=== PATIENT | male | born 1960 | race Caucasian/White ===

== ENCOUNTER 2018-05-02 17:40 | Inpatient (IN) | payer OTHER ==
[~2018-05-02] VITALS: Ht 177.8 cm; Wt 75.0 kg
[~2018-05-02 17:40] MED LIST: FENTAnyl 50 MCG/ML VIAL ONE
--- NOTE | 2018-05-02 17:50 | ERD ---
ER Documentation Chief Complaint Chief Complaint Chest pain HPI 57-year-old male with a history of hypertension brought in by ambulance for substernal chest pain. Patient states his symptoms started 1 hour ago while he was working. He states that he felt sweaty in his chest and pressure. Ambulance was immediately called. STEMI was recognized on EKG. Aspirin and nitroglycerin were given. Upon patient arrival, he states his pain is decrea sed. ROS Unable to obtain full history due to patient's critical condition. PMhx/Soc Full history was difficult to obtain as the patient was critical and taken immediately to the Junior Technical Writer Hx Cardiac Disorders: Yes (HTN) Hx Alcohol Use: Yes Hx Substance Use: No Hx Tobacco Use: Yes Smoking Status: Current every day smoker FmHx unable to obtain Physical Exam Physical Exam Const: No acute distress, no diaphoresis Head: Atraumatic Eyes: Normal Conjunctiva ENT: Normal External Ears, Nose and Mouth. Neck: Full range of motion. No meningismus. Resp: Clear to auscultation bilaterally Cardio: Regular rate and rhythm, no murmurs. 2+ distal pulses. Abd: Soft, non tender, non distended. Normal bowel sounds Skin: No petechiae or rashes Back: No midline or flank tenderness Ext: No cyanosis, or edema Neur: Awake and alert Psych: Normal Mood and Affect Procedures/MDM EMERGENT LABS AND DIAGNOSTIC STUDIES: Lab Results above were reviewed and interpreted by me. Labs are pending at time of admission 12-lead EKG from field was interpreted by Po Pineda MD: Atrial fibrillation with RVR and PVC at 107 bpm Normal axis Normal intervals LVH Inferior ST elevations with lateral depressions Consistent with STEMI. Initial Nursing notes reviewed. Previous Medical Records requested via the Electronic Health Record. EMERGENCY DEPARTMENT COURSE / MEDICAL DECISION MAKING: Patient is presenting for chest pain and EKG consistent with a STEMI. He was hemodynamically stable upon arrival. His symptoms have improved after he was given medications in the field. The engineering test specialist, Dr. Myles, was immediately notified prior to patient arrival. Junior Technical Writer was activated prior to patient arrival. Patient was evaluated immediately and taken directly to the Junior Technical Writer by the engineering test specialist. He consented to the procedure with a sales financial analyst available at bedside. No further workup was done in the ED as the patient was emergently taken for PCI. Accepting Care Team: Current data and ongoing care discussed. Time: Time of admission Primary Provider: [FILIPE] Consulting: Dr. Myles Outstanding Data: none Departure Diagnosis: Primary Impression: ST elevation (STEMI) myocardial infarction Involved coronary artery: unspecified coronary artery Qualified Codes: I21.3 - ST elevation (STEMI) myocardial infarction of unspecified site Condition: Critical DONNA PINEDA MD May 02, 2018 17:50
[2018-05-02] MEDS ORDERED: PRASUGREL HYDROCHLORIDE 10 MG TABLET PO ONE (18:04)
[2018-05-02] MEDS ORDERED: VERAPAMIL 5 MG INJ ONE ×2 (18:05)
[2018-05-02] MEDS ORDERED: NITROGLYCERIN (IC) 100 MCG/ML INJ ONE ×2 (18:05→18:23)
[2018-05-02] MEDS ORDERED: DIGOXIN 500 MCG INJ IV ONE (18:24)
[2018-05-02] MEDS ORDERED: IODIXANOL LOCM 100 ML BTL ONE (18:53)
[2018-05-02] MEDS ORDERED: LIDOCAINE 1% (MDV) 20 ML INJ ONE (18:53)
[2018-05-02] MEDS ORDERED: IODIXANOL LOCM 50 ML BTL ONE (18:53)
[2018-05-02] MEDS ORDERED: SOD CHLORIDE 0.9% 1,000 ML IV SCH (19:05)
--- NOTE | 2018-05-02 19:18 | OPR ---
Date/Time of Note Date/Time of Note DATE: 05/02/18 TIME: 19:11 Operative Report Procedure Date: May 02, 2018 Preoperative Diagnosis INFERIOR STEMI Postoperative Diagnosis INFERIOR STEMI Operation/Procedure Performed PCI RCA Surgeon see signature line Beekeeper none Anesthesia Type: moderate sedation Estimated Blood Loss: minimal Transfusion none Specimen none Grafts/Implants none Complications none Procedure Description Computer Game Tester: Geovanny Myles MD Indication: Inferior ST elevation myocardial infarction Procure performed: #1 Emergent left heart catheterization and selective right and left coronary angiogram #2 Right femoral angiogram 3. Successful PTCA and stenting of proximal mid and distal right coronary artery using 3.5 x 16 mm Synergy, 3 x 38 mm Synergy, 2.5 x 24 mm Synergy drug- eluting stent 4. Thrombectomy of the right coronary artery using a Pronto device Findings: 1. Left main: is large and long with 30% mid to distal stenosis. 2. LAD: Moderate size and wraps around the apex. It has 40 % stenosis at proximal LAD, and 60 % stenosis at mid LAD the site of diagonal. Second diagonal is moderate size vessel with about 60-70% ostial stenosis.. 3. Left circumflex artery: is nondominant and small and gives out to one obtuse marginal. It has diffuse mid to distal stenosis 4. Ramus intermediate is a large vessel but about 90% mid stenosis at the site of a band 5. RCA: is large and dominant. it is 100% occluded proximally. After successful PCI to this lesion there was no significant residual stenosis left. 5. LV: 129/15 aortic pressure by pull back: 118/73 Procedure in detail: Written informed consent with obtained after risks benefits and alternatives di scussed with the patient in detail. risks including but not limited to risk of infection vascular complications, bleeding complications, ND stroke arrhythmia renal failure at even were discussed with the patient in detail. Patient was emergently brought into the cardiac optical laboratory mechanic and placed in supine position. Right and left groin area was prepped and draped in regular sterile fashion and then he was in anesthetized using 1% lidocaine. Right femoral artery was cannulated and using modified seldinger technique a 6 Nepali sheath was placed in the femoral artery. JL4 guiding catheter was advanced to engage the left main coronary artery angiographic view was obtained. A JR4 guiding DrRoxy was advanced to engage the right coronary artery graft view was obtained.. This time we decided to perform PCI of the right coronary artery. BMW wire was used and advanced across the lesion and placed distal to the lesion. I used a 2.5 x 12 mm balloon which was placed across the lesion and predilated the vessel. A Pronto was used multiple rounds and thrombectomy was done. More ballooning was done at the proximal mid and distal right coronary artery. Then I used a 2.5 x 24 mm Synergy drug-eluting stent which was placed across the distal right coronary artery lesion and deployed at 16 Kaylie. Then a 3 x 38 mm Synergy drug-eluting stent was placed across the mid lesion deployed at 16 kaylie. Finally a 3.5 x 16 mm Synergy drug-eluting stent was placed across the proximal lesion overlapping with the mid stent. This was deployed at 16 kaylie. The stent balloon was advanced and overlapping area was postdilated up to 16 kaylie. Finally a 3.5 x 12 mm noncompliant balloon was used and postdilated the stent and up to 20 Kaylie. Final angiographic view was obtained which showed BRIGETTE-3 flow no evidence of dissection and no significant residual stenosis at the site of the stent. Then a pigtail was advanced to engage the left ventricle hemodynamics as recorded by pullback aortic pressure was measured. Femoral angiogram was performed. Perclose was advanced to complete it could not be deployed. Sheath was placed back in Patient tolerated the procedure well with no complication. Patient was transferred to ICU in stable condition. contrast used: 180 cc Visipaque Conclusions: Successful PTCA thrombectomy /stenting of the right coronary artery from 100% occlusion to no significant residual stenosis using a 3 DESright coronary stent. Recommendations: Aggressive medical therapy. aspirin indefinitely dual antiplatlet therapy with asa/ effient ICU care overnight. GEOVANNY MYLES MD [facility] GEOVANNY MYLES MD May 02, 2018 19:18
[2018-05-02] MEDS ORDERED: ACETAMINOPHEN 325 MG TAB PO PRN (19:30)
[2018-05-02] MEDS ORDERED: BIVALIRUDIN 250 MG in SOD CHLORIDE 0.9% 500 ML IV SCH (19:30)
[2018-05-02] MEDS ORDERED: OXYCODONE/ACETAMINOPHEN (5/325) TAB PO PRN ×2 (19:30)
[2018-05-02] MEDS ORDERED: morphine 2 MG INJ IV PRN (19:30)
--- NOTE | 2018-05-02 19:30 | CONS ---
Assessment/Plan Assessment/Plan Hospital Course (Demo Recall) 1. Acute inferior ST elevation myocardial infarction 2. Status post emergent PCI of the right coronary artery 3. Multivessel coronary artery disease including significant ramus intermediate disease 4. Hypertension 5. Rule out dyslipidemia 6. Atrial fibrillation rapid ventricular response: Currently has converted back to sinus rhythm 7. Obesity and likely obstructive sleep apnea 8. Smoker Recommendations: Aspirin and Effient has been initiated. Patient has been strongly advised to stop smoking Continue with the Angiomax drip postprocedure for 3 hours and then remove the sheath 2 hours post. Echocardiogram has been ordered for tomorrow. Statin has been initiated. Continue with close ICU care. Importance of compliance with the medication especially aspirin and Effient discussed with the patient and multiple family was at the bedside. Prescription has been given to the family to filling the prescription today. More than 40 minutes of critical care time was for management treatment is critically ill patient excluding any procedures. Thank you for his referral will continue following with you. GEOVANNY SANDS MD [facility] Consultation Date/Type/Reason Admit Date/Time Date of Consultation: May 02, 2018 Type of Consult emergent interventional Cardiology Reason for Consultation stemi Requesting Provider: DONNA HEATH MD Date/Time of Note DATE: 05/02/18 TIME: 19:29 Hx of Present Illness Emergent interventional cardiology consultation note Chief complaint: Diaphoresis, chest pain Reason for consult: ST elevation ND History of present illness: Thank you for this referral. History was obtained from the patient discussion with his family including daughter and discussion with the ER physician multiple staff. This is a pleasant 57-year-old gentleman with history of [place] obesity hypertension smoker who was brought into emergency above complaint. Patient apparently was at work he started sweating and having chest pain anteriorly. Paramedics were called EKG was done which showed inferior ST elevation myocardial infarction atrial fibrillation. . Code STEMI was activated. Patient was immediately seen by myself in the emergency room as soon as he got to the emergency room. Patient was taken emergently for emergent coronary angiography. Angiography showed 100% occlusion of the right coronary artery. This lesion was successfully stented using 3 drug-eluting stent and thrombectomy was done. Initially patient was in atrial fibrillation rapid ventricular response. However he has converted back to sinus rhythm after successful PCI and currently in sinus rhythm. His chest pain at this point has completely resolved. Remains in ICU with close monitoring. She is in place Allergies: No known drug allergies Medications does not remember. He takes a blood pressure medication but not regularly though Family history: Denies any history of early coronary artery disease Social history: Non-smoker is with lives with family Past medical history: Hypertension, dyslipidemia probably, obesity Review of system: Patient denies all others except for above-mentioned Past Medical History Allergies: Coded Allergies: No Known Allergy (Unverified , 05/02/18) Social History Smoking Status: Current every day smoker Exam/Review of Systems Vital Signs Vitals Vital Signs Date Temp Pulse Resp B/P (MAP) Pulse Ox O2 O2 Flow FiO2 Time Delivery Rate 05/02/18 97.3 90 16 135/60 100 Room Air 17:47 (85) Exam Exam General: Obese gentleman no acute distress HEENT: NC/AT. pupils are equal. round. NECK: NO JVD. no stridor. CV: RRR. systolic murmur; no gallop or rubs. PULM: no wheezing or rhonchi. GI: SOFT, NT, ND, no rebound or guarding Extremity: trace B/L LE edema. no clubbing. neuro: awake and alert, OX3. Psych: calm and pleasant rectal: deferred : normal Vascular right femoral sheath is in place. EKG in the emergency room showed atrial fibrillation with rapid ventricular response. Inferior ST elevation myocardial infarction Labs Result Diagram: 05/02/18 1745 05/02/18 1745 Results 24hrs Laboratory Tests Test 05/02/18 17:45 White Blood Count 12.6 H Red Blood Count 4.93 Hemoglobin 15.3 Hematocrit 46.0 Mean Corpuscular Volume 93.3 Mean Corpuscular Hemoglobin 31.0 Mean Corpuscular Hemoglobin Concent 33.3 Red Cell Distribution Width 12.3 Platelet Count 241 Mean Platelet Volume 10.5 H Immature Granulocytes % 1.000 H Neutrophils % 74.2 Lymphocytes % 11.4 L Monocytes % 10.5 Eosinophils % 2.4 Basophils % 0.5 Nucleated Red Blood Cells % 0.0 Immature Granulocytes # 0.120 H Neutrophils # 9.4 H Lymphocytes # 1.4 Monocytes # 1.3 H Eosinophils # 0.3 Basophils # 0.1 Nucleated Red Blood Cells # 0.0 Prothrombin Time 12.1 Prothrombin Time Ratio 0.9 INR International Normalized Ratio 0.89 Activated Partial Thromboplast Time 28.6 Sodium Level 141 Potassium Level 4.1 Chloride Level 105 Carbon Dioxide Level 25 Anion Gap 11 Blood Urea Nitrogen 12 Creatinine 1.43 H Est Glomerular Filtrat Rate mL/min 51 L Glucose Level 156 Calcium Level 9.6 Troponin I 0.046 GEOVANNY SANDS MD May 02, 2018 19:30
[2018-05-02 20:00] VITALS: BP 168/89; PULSE 90; PULSE 92; RESP 18
[2018-05-02 21:00] VITALS: BP 153/92; PULSE 96; RESP 18
[2018-05-02] MEDS ORDERED: METOPROLOL 25 MG TAB PO SCH (21:00)
[2018-05-02] MEDS: FAMOTIDINE 20 MG TAB PO SCH (21:35)
[2018-05-02] MEDS: DOCUSATE SODIUM 100 MG CAP PO SCH (21:35)
[2018-05-02] MEDS: ATORVASTATIN 80 MG TAB PO SCH (21:35)
[2018-05-02 22:00] VITALS: BP 162/105; PULSE 100; RESP 19; Ht 177.8 cm; Wt 75.0 kg
[2018-05-02 23:00] VITALS: BP 150/102; PULSE 88; RESP 14
--- NOTE | 2018-05-02 23:53 | HP ---
Date/Time of Note Date/Time of Note DATE: 05/02/18 TIME: 23:53 Assessment/Plan VTE Prophylaxis Pharmacological prophylaxis: heparin Lines/Catheters IV [facility]ter [facility]from [facility] Saline Lock Urinary Cath still in place: No Assessment/Plan Assessment/Plan 1. STEMI: Status post thrombectomy and stenting of the RCA -Continue current medication per cardiology -Check A1c, fasting lipid and TSH in a.m. -Follow-up 2D echo and cardiology recommendations 2. Presumed GUSTAVO -NS IVF for now -We will make a decision about the renal ultrasound and nephrology consult in a.m. 3. Left elbow swelling, likely secondary to gout -Family to bring medication that he takes at home for gout. In the meantime will treat with 4. Hypertension: Adjust antihypertensives as needed 5. Leukocytosis: Likely reactive Result Diagram: 05/02/18 1745 05/02/18 1745 Results 24hrs Laboratory Tests Test 05/02/18 17:45 05/02/18 22:46 White Blood Count 12.6 H Red Blood Count 4.93 Hemoglobin 15.3 Hematocrit 46.0 Mean Corpuscular Volume 93.3 Mean Corpuscular Hemoglobin 31.0 Mean Corpuscular Hemoglobin Concent 33.3 Red Cell Distribution Width 12.3 Platelet Count 241 Mean Platelet Volume 10.5 H Immature Granulocytes % 1.000 H Neutrophils % 74.2 Lymphocytes % 11.4 L Monocytes % 10.5 Eosinophils % 2.4 Basophils % 0.5 Nucleated Red Blood Cells % 0.0 Immature Granulocytes # 0.120 H Neutrophils # 9.4 H Lymphocytes # 1.4 Monocytes # 1.3 H Eosinophils # 0.3 Basophils # 0.1 Nucleated Red Blood Cells # 0.0 Prothrombin Time 12.1 Prothrombin Time Ratio 0.9 INR International Normalized Ratio 0.89 Activated Partial Thromboplast Time 28.6 Sodium Level 141 Potassium Level 4.1 Chloride Level 105 Carbon Dioxide Level 25 Anion Gap 11 Blood Urea Nitrogen 12 Creatinine 1.43 H Est Glomerular Filtrat Rate mL/min 51 L Glucose Level 156 Calcium Level 9.6 Troponin I 0.046 107.000 *H Hemoglobin A1c 6.5 H Creatine Kinase 2866 H Creatine Kinase Index 6.2 Creatinine Kinase MB (Mass) 178.00 H HPI/ROS Admit Date/Time Admit Date/Time Hx of Present Illness This is a 57-year-old male with a history of hypertension and gout who presented to ER complaining of chest pain. He was diagnosed with STEMI. Patient was taken to the Web Machine Tender emergently and underwent cardiac cath. He is status post thrombectomy of the RCA and successful PTCA and stenting of proximal mid and distal right coronary artery. Currently admitted to ICU in stable condition. Currently he is chest pain-free, denying shortness of breath and overall feels well and looks comfortable. He does have swelling on his right elbow, which he said started over a week ago. He said he takes gout medication for it. Swelling was twice the size of what it is now several days ago. It is only minimally swollen and there is no erythema. He also reported having had swelling on his left great toe. PMH/Family/Social Past Medical History Medical History: other (See HPI) Medications Current Medications Miscellaneous Information (* Miscellaneous Pharmacy Order) Hold all Metformin ... ONCE XX ; Start 05/02/18 at 19:30; Stop 05/04/18 at 19:29 Aspirin (Halfprin) 81 mg DAILY PO ; Start 05/03/18 at 09:00 Prasugrel (Effient) 10 mg DAILY PO ; Start 05/03/18 at 09:00 Acetaminophen (Tylenol Tab) 650 mg Q4H PRN PO PAIN; Start 05/02/18 at 19:30 Oxycodone/ Acetaminophen (Percocet (5/ 325)) 1 tab Q4H PRN PO PAIN; Start 05/02/18 at 19:30 Oxycodone/ Acetaminophen (Percocet (5/ 325)) 2 tab Q4H PRN PO PAIN; Start 05/02/18 at 19:30 Morphine Sulfate (morphine) 1 mg Q1H PRN IV PAIN; Start 05/02/18 at 19:30 Docusate Sodium (Colace) 100 mg BID PO Last administered on 05/02/18at 21:35; Admin Dose 100 MG; Start 05/02/18 at 21:00 Famotidine (Pepcid) 20 mg Q12 PO Last administered on 05/02/18at 21:35; Admin Dose 20 MG; Start 05/02/18 at 21:00 Atorvastatin Calcium (Lipitor) 80 mg DAILY@21 PO Last administered on 05/02/18at 21:35; Admin Dose 80 MG; Start 05/02/18 at 21:00 Sodium Chloride 1,000 ml @ 100 mls/hr Q10H IV Last administered on 05/02/18at 19:05; Admin Dose 100 MLS/HR; Start 05/02/18 at 19:05; Stop 05/03/18 at 05:04 Carvedilol (Coreg) 6.25 mg BID PO Last administered on 05/02/18at 21:36; Admin Dose 6.25 MG; Start 05/02/18 at 21:00 Clonidine (Catapres) 0.1 mg Q4H PRN NGT SBP > 170; Start 05/02/18 at 20:30 Coded Allergies: No Known Allergy (Unverified , 05/02/18) Past Surgical History Past Surgical Hx: other (See HPI) Family History Significant Family History: no pertinent family hx Social History Alcohol Use: occasionally Smoking Status: Current every day smoker Drug Use: none Exam/Review of Systems Vital Signs Vitals Vital Signs Date Temp Pulse Resp B/P (MAP) Pulse Ox O2 O2 Flow FiO2 Time Delivery Rate 05/02/18 92 20:00 05/02/18 97.3 16 135/60 100 Room Air 17:47 (85) Exam Constitutional: alert, oriented, well developed Head: normocephalic, atraumatic Eyes: EOMI, PERRL Respiratory: clear to auscultation, normal air movement Cardiovascular: regular rate and rhythm, nl pulses Gastrointestinal: soft, non-tender Extremities: normal pulses, other (Left elbow swelling) SIM CHÁVEZ MD May 02, 2018 23:53
[2018-05-02] MEDS ORDERED: ATROPINE 1 MG/10 ML SYRINGE ONE (23:57)
[2018-05-03] VITALS (26 sets, daily range): BP systolic 120–166; BP diastolic 62–124; PULSE 77–96; RESP 9–20
--- NOTE | 2018-05-03 07:14 | CONS ---
Consult Date/Type/Reason Admit Date/Time May 02, 2018 at 19:11 Initial Consult Date 05/02/18 Type of Consultation: interventional card Requesting Provider: DONNA HEATH MD Date/Time of Note DATE: 05/03/18 TIME: 07:09 Subjective Interventional cardiology follow-up progress note/critical care note Subjective: Case discussed with the staff. Discussed with the family. D/W PHYSICIANS Patient with no chest pain or pressure now. Has minimal groin discomfort. No bleeding is reported. Patient has been able to walk this morning with no chest pain or pressure. He denies any PND orthopnea to me. Telemetry was reviewed patient has remained in sinus rhythm Objective: General: Obese gentleman in no acute distress HEENT: NC/AT. pupils are equal. round. NECK: NO JVD. no stridor. CV: RRR. systolic murmur; no gallop or rubs. PULM: no wheezing or rhonchi. GI: SOFT, NT, ND, no rebound or guarding Extremity: trace B/L LE edema. no clubbing. neuro: awake and alert, OX3. Psych: calm and pleasant rectal: deferred : normal Vascular: Right femoral no bleeding no hematoma noted. No bruit. EKG postprocedure shows: Normal sinus rhythm. T wave inversion in inferolateral leads. Echocardiogram done 05/03/2018 was personally reviewed which shows: Normal left ventricular cavity size. Mild concentric left ventricular hypertrophy. Ejection fraction is visually estimated at 60 %. Tissue Doppler/Mitral Doppler indices are consistent with impaired relaxation (Stage I diastolic dysfunction). These segments of the LV are hypokinetic inferior base segment. Mild mitral leaflet calcification. Mild mitral annular calcification. Trace mitral regurgitation. No significant aortic stenosis or insufficiency. Aortic cusps appear mildly calcified. Normal appearance of the tricuspid valve. Estimated peak PA systolic pressure 42 mmHg. There is mild tricuspid regurgitation. Objective Vitals Vital Signs Date Temp Pulse Resp B/P (MAP) Pulse Ox O2 O2 Flow FiO2 Time Delivery Rate 05/03/18 83 12 160/105 100 Room Air 06:00 (123) 05/03/18 2.0 05:00 05/03/18 98.2 04:00 Intake and Output 05/02/18 05/02/18 05/03/18 1515:00 23:00 07:00 IntakeIntake Total 580 ml 600 ml OutputOutput Total 0 ml 1050 ml BalanceBalance 580 ml -450 ml Results/Medications Result Diagram: 05/03/18 0444 05/03/18 0444 Results 24 hrs Laboratory Tests Test 05/02/18 17:45 05/02/18 22:46 05/03/18 04:44 White Blood Count 12.6 H 11.2 H Red Blood Count 4.93 4.52 L Hemoglobin 15.3 14.0 Hematocrit 46.0 41.3 L Mean Corpuscular Volume 93.3 91.4 Mean Corpuscular Hemoglobin 31.0 31.0 Mean Corpuscular Hemoglobin Concent 33.3 33.9 Red Cell Distribution Width 12.3 12.6 Platelet Count 241 217 Mean Platelet Volume 10.5 H 10.7 H Immature Granulocytes % 1.000 H 0.400 Neutrophils % 74.2 74.7 Lymphocytes % 11.4 L 14.2 L Monocytes % 10.5 9.3 Eosinophils % 2.4 1.0 Basophils % 0.5 0.4 Nucleated Red Blood Cells % 0.0 0.0 Immature Granulocytes # 0.120 H 0.040 H Neutrophils # 9.4 H 8.4 H Lymphocytes # 1.4 1.6 Monocytes # 1.3 H 1.0 H Eosinophils # 0.3 0.1 Basophils # 0.1 0.0 Nucleated Red Blood Cells # 0.0 0.0 Prothrombin Time 12.1 13.2 Prothrombin Time Ratio 0.9 1.0 INR International Normalized Ratio 0.89 0.99 Activated Partial Thromboplast Time 28.6 Sodium Level 141 140 Potassium Level 4.1 3.9 Chloride Level 105 106 Carbon Dioxide Level 25 27 Anion Gap 11 7 Blood Urea Nitrogen 12 10 Creatinine 1.43 H 0.91 Est Glomerular Filtrat Rate mL/min 51 L > 60 Glucose Level 156 129 Calcium Level 9.6 9.1 Troponin I 0.046 107.000 *H 114.000 *H Hemoglobin A1c 6.5 H 6.4 H Creatine Kinase 2866 H 2743 H Creatine Kinase Index 6.2 6.3 Creatinine Kinase MB (Mass) 178.00 H 174.00 H Magnesium Level 2.0 Total Bilirubin 0.3 Direct Bilirubin 0.00 Indirect Bilirubin 0.3 Aspartate Amino Transf (AST/SGOT) 336 H Alanine Aminotransferase (ALT/SGPT) 75 H Alkaline Phosphatase 72 B-Type Natriuretic Peptide 329 H Total Protein 6.8 Albumin 3.6 Globulin 3.20 Albumin/Globulin Ratio 1.12 Triglycerides Level 347 H Cholesterol Level 164 LDL Cholesterol, Calculated 70 HDL Cholesterol 25 L Cholesterol/HDL Ratio 6.5 Thyroid Stimulating Hormone (TSH) 0.872 Free Thyroxine 0.79 Medications Current Medications Miscellaneous Information (* Miscellaneous Pharmacy Order) Hold all Metformin ... ONCE XX ; Start 05/02/18 at 19:30; Stop 05/04/18 at 19:29 Aspirin (Halfprin) 81 mg DAILY PO ; Start 05/03/18 at 09:00 Prasugrel (Effient) 10 mg DAILY PO ; Start 05/03/18 at 09:00 Acetaminophen (Tylenol Tab) 650 mg Q4H PRN PO PAIN; Start 05/02/18 at 19:30 Oxycodone/ Acetaminophen (Percocet (5/ 325)) 1 tab Q4H PRN PO PAIN; Start 05/02/18 at 19:30 Oxycodone/ Acetaminophen (Percocet (5/ 325)) 2 tab Q4H PRN PO PAIN; Start 05/02/18 at 19:30 Morphine Sulfate (morphine) 1 mg Q1H PRN IV PAIN; Start 05/02/18 at 19:30 Docusate Sodium (Colace) 100 mg BID PO Last administered on 05/02/18at 21:35; Admin Dose 100 MG; Start 05/02/18 at 21:00 Famotidine (Pepcid) 20 mg Q12 PO Last administered on 05/02/18at 21:35; Admin Dose 20 MG; Start 05/02/18 at 21:00 Atorvastatin Calcium (Lipitor) 80 mg DAILY@21 PO Last administered on 05/02/18at 21:35; Admin Dose 80 MG; Start 05/02/18 at 21:00 Carvedilol (Coreg) 6.25 mg BID PO Last administered on 05/02/18at 21:36; Admin Dose 6.25 MG; Start 05/02/18 at 21:00 Clonidine (Catapres) 0.1 mg Q4H PRN NGT SBP > 170; Start 05/02/18 at 20:30 Assessment/Plan Hospital Course (Demo Recall) 1. Acute inferior ST elevation myocardial infarction 2. Status post emergent PCI of the right coronary artery 3. Multivessel coronary artery disease including significant ramus intermediate disease 4. Hypertension 5. Rule out dyslipidemia 6. Atrial fibrillation rapid ventricular response: Currently has converted back to sinus rhythm 7. Obesity and likely obstructive sleep apnea 8. Smoker 8. DM? Recommendations: CONT Aspirin and Effient inc coreg 12.5 bid Patient has been strongly advised to stop smoking Off the Angiomax drip high dose statin PCI RI as inpatient or outpt at a later time Importance of compliance with the medication especially aspirin and Effient discussed with the patient and multiple family was at the bedside. Prescription has been given to the family to filling the prescription today. Plan for staged PCI of the ramus intermediate tomorrow morning if patient stays compliant with the medication the family is able to filling the prescriptions. Risks benefits alternative procedure discussed with the patient and family including daughter at the bedside in detail. Risks including but not limited to risk of infection vascular complication bleeding complication [place] stroke arrhythmia renal failure etc. discussed with them. Consent has been obtained. More than 34 minutes of critical care time was for management treatment is critically ill patient excluding any procedures. Thank you for his referral will continue following with you. GEOVANNY SANDS MD [facility] GEOVANNY SANDS MD May 03, 2018 07:14
[2018-05-03] MEDS: DOCUSATE SODIUM 100 MG CAP PO SCH ×2 (08:32→20:50)
[2018-05-03] MEDS: FAMOTIDINE 20 MG TAB PO SCH ×2 (08:33→20:51)
[2018-05-03] MEDS: PRASUGREL HYDROCHLORIDE 10 MG TABLET PO SCH (08:33)
[2018-05-03] MEDS: ASPIRIN (EC) 81 MG TAB PO SCH (08:33)
--- NOTE | 2018-05-03 09:37 | PN ---
Date/Time of Note Date/Time of Note DATE: 05/03/18 TIME: 09:32 Assessment/Plan VTE Prophylaxis Risk score (from Ns)>0 risk: 4 SCD applied (from Ns): Yes Pharmacological prophylaxis: other Lines/Catheters IV Catheter Type (from Nrs): Saline Lock Urinary Cath still in place: No Assessment/Plan Hospital Course S: Patient seen by cardiology team this morning. Had stent placement yesterday. No acute events overnight. O: VS - see below PE: General: Obese gentleman, lying in bed, no acute distress HEENT: NC/AT. pupils are equal. round. NECK: Supple CV: RRR. systolic murmur; no gallop or rubs. PULM: no wheezing or rhonchi. GI: SOFT, NT, ND, no rebound or guarding Extremity: trace B/L LE edema. no clubbing. neuro: No focal deficits Vascular: Right femoral no bleeding no hematoma noted. No bruit. Assessment/Plan: 57-year-old male who presents with: 1. STEMI: Status post thrombectomy and stenting of the RCA -Continue current medications per cardiology -Follow-up further cardiology recommendations 2. Presumed GUSTAVO -resolved now after given IV fluids -Monitor for now 3. Left elbow swelling, likely secondary to gout -Family to bring medication that he takes at home for gout. 4. Hypertension: Diastolic pressure still high -Monitor, adjust antihypertensives as needed 5. Leukocytosis: Likely reactive -Monitor for now Critical care time spent on patient care today equals 45 minutes. Result Diagram: 05/03/18 0444 05/03/18 0444 Results 24hrs Laboratory Tests Test 05/02/18 17:45 05/02/18 22:46 05/03/18 04:44 White Blood Count 12.6 H 11.2 H Red Blood Count 4.93 4.52 L Hemoglobin 15.3 14.0 Hematocrit 46.0 41.3 L Mean Corpuscular Volume 93.3 91.4 Mean Corpuscular Hemoglobin 31.0 31.0 Mean Corpuscular Hemoglobin Concent 33.3 33.9 Red Cell Distribution Width 12.3 12.6 Platelet Count 241 217 Mean Platelet Volume 10.5 H 10.7 H Immature Granulocytes % 1.000 H 0.400 Neutrophils % 74.2 74.7 Lymphocytes % 11.4 L 14.2 L Monocytes % 10.5 9.3 Eosinophils % 2.4 1.0 Basophils % 0.5 0.4 Nucleated Red Blood Cells % 0.0 0.0 Immature Granulocytes # 0.120 H 0.040 H Neutrophils # 9.4 H 8.4 H Lymphocytes # 1.4 1.6 Monocytes # 1.3 H 1.0 H Eosinophils # 0.3 0.1 Basophils # 0.1 0.0 Nucleated Red Blood Cells # 0.0 0.0 Prothrombin Time 12.1 13.2 Prothrombin Time Ratio 0.9 1.0 INR International Normalized Ratio 0.89 0.99 Activated Partial Thromboplast Time 28.6 Sodium Level 141 140 Potassium Level 4.1 3.9 Chloride Level 105 106 Carbon Dioxide Level 25 27 Anion Gap 11 7 Blood Urea Nitrogen 12 10 Creatinine 1.43 H 0.91 Est Glomerular Filtrat Rate mL/min 51 L > 60 Glucose Level 156 129 Calcium Level 9.6 9.1 Troponin I 0.046 107.000 *H 114.000 *H Hemoglobin A1c 6.5 H 6.4 H Creatine Kinase 2866 H 2743 H Creatine Kinase Index 6.2 6.3 Creatinine Kinase MB (Mass) 178.00 H 174.00 H Magnesium Level 2.0 Total Bilirubin 0.3 Direct Bilirubin 0.00 Indirect Bilirubin 0.3 Aspartate Amino Transf (AST/SGOT) 336 H Alanine Aminotransferase (ALT/SGPT) 75 H Alkaline Phosphatase 72 B-Type Natriuretic Peptide 329 H Total Protein 6.8 Albumin 3.6 Globulin 3.20 Albumin/Globulin Ratio 1.12 Triglycerides Level 347 H Cholesterol Level 164 LDL Cholesterol, Calculated 70 HDL Cholesterol 25 L Cholesterol/HDL Ratio 6.5 Thyroid Stimulating Hormone (TSH) 0.872 Free Thyroxine 0.79 Exam/Review of Systems Exam Vitals Vital Signs Date Temp Pulse Resp B/P (MAP) Pulse Ox O2 O2 Flow FiO2 Time Delivery Rate 05/03/18 96 18 141/107 98 Room Air 09:00 (118) 05/03/18 98.5 08:00 05/03/18 2.0 05:00 Intake and Output 05/02/18 05/02/18 05/03/18 1515:00 23:00 07:00 IntakeIntake Total 580 ml 600 ml OutputOutput Total 0 ml 1050 ml BalanceBalance 580 ml -450 ml Results Results 24hrs Laboratory Tests Test 05/02/18 17:45 05/02/18 22:46 05/03/18 04:44 White Blood Count 12.6 H 11.2 H Red Blood Count 4.93 4.52 L Hemoglobin 15.3 14.0 Hematocrit 46.0 41.3 L Mean Corpuscular Volume 93.3 91.4 Mean Corpuscular Hemoglobin 31.0 31.0 Mean Corpuscular Hemoglobin Concent 33.3 33.9 Red Cell Distribution Width 12.3 12.6 Platelet Count 241 217 Mean Platelet Volume 10.5 H 10.7 H Immature Granulocytes % 1.000 H 0.400 Neutrophils % 74.2 74.7 Lymphocytes % 11.4 L 14.2 L Monocytes % 10.5 9.3 Eosinophils % 2.4 1.0 Basophils % 0.5 0.4 Nucleated Red Blood Cells % 0.0 0.0 Immature Granulocytes # 0.120 H 0.040 H Neutrophils # 9.4 H 8.4 H Lymphocytes # 1.4 1.6 Monocytes # 1.3 H 1.0 H Eosinophils # 0.3 0.1 Basophils # 0.1 0.0 Nucleated Red Blood Cells # 0.0 0.0 Prothrombin Time 12.1 13.2 Prothrombin Time Ratio 0.9 1.0 INR International Normalized Ratio 0.89 0.99 Activated Partial Thromboplast Time 28.6 Sodium Level 141 140 Potassium Level 4.1 3.9 Chloride Level 105 106 Carbon Dioxide Level 25 27 Anion Gap 11 7 Blood Urea Nitrogen 12 10 Creatinine 1.43 H 0.91 Est Glomerular Filtrat Rate mL/min 51 L > 60 Glucose Level 156 129 Calcium Level 9.6 9.1 Troponin I 0.046 107.000 *H 114.000 *H Hemoglobin A1c 6.5 H 6.4 H Creatine Kinase 2866 H 2743 H Creatine Kinase Index 6.2 6.3 Creatinine Kinase MB (Mass) 178.00 H 174.00 H Magnesium Level 2.0 Total Bilirubin 0.3 Direct Bilirubin 0.00 Indirect Bilirubin 0.3 Aspartate Amino Transf (AST/SGOT) 336 H Alanine Aminotransferase (ALT/SGPT) 75 H Alkaline Phosphatase 72 B-Type Natriuretic Peptide 329 H Total Protein 6.8 Albumin 3.6 Globulin 3.20 Albumin/Globulin Ratio 1.12 Triglycerides Level 347 H Cholesterol Level 164 LDL Cholesterol, Calculated 70 HDL Cholesterol 25 L Cholesterol/HDL Ratio 6.5 Thyroid Stimulating Hormone (TSH) 0.872 Free Thyroxine 0.79 Medications Medication Current Medications Miscellaneous Information (* Miscellaneous Pharmacy Order) Hold all Metformin ... ONCE XX ; Start 05/02/18 at 19:30; Stop 05/04/18 at 19:29 Aspirin (Halfprin) 81 mg DAILY PO Last administered on 05/03/18 08:33; Admin Dose 81 MG; Start 05/03/18 at 09:00 Prasugrel (Effient) 10 mg DAILY PO Last administered on 05/03/18 08:33; Admin Dose 10 MG; Start 05/03/18 at 09:00 Acetaminophen (Tylenol Tab) 650 mg Q4H PRN PO PAIN; Start 05/02/18 at 19:30 Oxycodone/ Acetaminophen (Percocet (5/ 325)) 1 tab Q4H PRN PO PAIN; Start 05/02/18 at 19:30 Oxycodone/ Acetaminophen (Percocet (5/ 325)) 2 tab Q4H PRN PO PAIN; Start 05/02/18 at 19:30 Morphine Sulfate (morphine) 1 mg Q1H PRN IV PAIN; Start 05/02/18 at 19:30 Docusate Sodium (Colace) 100 mg BID PO Last administered on 05/03/18 08:32; Admin Dose 100 MG; Start 05/02/18 at 21:00 Famotidine (Pepcid) 20 mg Q12 PO Last administered on 05/03/18 08:33; Admin Dose 20 MG; Start 05/02/18 at 21:00 Atorvastatin Calcium (Lipitor) 80 mg DAILY@21 PO Last administered on 05/02/18at 21:35; Admin Dose 80 MG; Start 05/02/18 at 21:00 Clonidine (Catapres) 0.1 mg Q4H PRN NGT SBP > 170; Start 05/02/18 at 20:30 Carvedilol (Coreg) 12.5 mg BID PO Last administered on 05/03/18 08:33; Admin Dose 12.5 MG; Start 05/03/18 at 09:00 GOYO JACQUES May 03, 2018 09:37
--- NOTE | 2018-05-03 10:16 | RADRPT ---
Echocardiogram Report Patient Name: Indiana PÉREZtient ID: [id number] : 1960 (57y 7m)Study Date: 05/03/2018 8:10:56 AM Gender: MAccession #: [id number] Tech: Devon Callahan [facility] Location: [address] Ref.Physician: GEOVANNY MYLES Height(Cm): BSA: Weight(Kg): Quality: AdequateAccount #: Procedures: Echocardiographic Report: Transthoracic echocardiogram with complete 2D, M-Mode, and doppler examination. Indications: STEMI. Measurements: 2D/M Mode Doppler Measurement Value Normal Range Measurement Value Normal Range LVIDd 2D 4.1 [ 4.2 - 5.8 ] cm AV Peak Mitchel 1.4 [ 100.0 - 170.0 ] cm/sec LVIDs 2D 2.8 [ 2.5 - 4.0 ] cm AV Peak PG 8.0 [ 2.0 - 9.0 ] mmHg LVPWd 2D 1.3 [ 0.6 - 1.0 ] cm LVOT Peak Mitchel 1.0 [ 70.0 - 110.0 ] cm/sec IVSd 2D 1.3 [ 0.6 - 1.0 ] cm LVOT Peak PG 4.0 [ 2.0 - 6.0 ] mmHg AoR Diam 2D 2.9 [ 2.6 - 3.4 ] cm MV E Peak Mitchel 0.7 [ 60.0 - 130.0 ] cm/sec EDV 2D 72.5 [ 62.0 - 150.0 ] ml MV A Peak Mitchel 0.9 [ 100.0 - 120.0 ] cm/sec ESV 2D 28.5 [ 21.0 - 61.0 ] ml MV E/A 0.8 [ 0.8 - 1.5 ] ratio EF 2D 60.7 [ 52.0 - 72.0 ] percent MV Decel Time 222 [ 104 - 258 ] msec LA Dimen 2D 3.1 [ 3.0 - 4.0 ] cm Lat E` Mitchel 0.1 [ 10.0 - 15.0 ] cm/sec Lateral E/E` 7.9 [ 1.0 - 2.0 ] ratio Med E` Mitchel 0.1 cm/sec MV E/A 0.8 [ 0.8 - 1.5 ] ratio TR Peak Mitchel 2.8 [ 100.0 - 280.0 ] cm/sec TR Peak PG 32.0 mmHg RVSP 42.0 [ 10.0 - 36.0 ] mmHg Findings: Left Ventricle: Normal left ventricular cavity size. Mild concentric left ventricular hypertrophy. Ejection fraction is visually estimated at 60 %. Tissue Doppler/Mitral Doppler indices are consistent with impaired relaxation (Stage I diastolic dysfunction). These segments of the LV are hypokinetic inferior base segment. Right Ventricle: Normal right ventricular size. Normal right ventricular systolic function. Left Atrium: The left atrium is normal in size. Right Atrium: The right atrium is normal in size. Mitral Valve: Mild mitral leaflet calcification. Mild mitral annular calcification. Trace mitral regurgitation. Aortic Valve: No significant aortic stenosis or insufficiency. Aortic cusps appear mildly calcified. Tricuspid Valve: Normal appearance of the tricuspid valve. Estimated peak PA systolic pressure 42 mmHg. There is mild tricuspid regurgitation. Pericardium: Normal pericardium with no significant pericardial effusion. Aorta: Normal aortic root. IVC: Normal size with poor respiratory collapse consistent with elevated right atrial pressure. Conclusions: Normal left ventricular cavity size. Mild concentric left ventricular hypertrophy. Ejection fraction is visually estimated at 60 %. Tissue Doppler/Mitral Doppler indices are consistent with impaired relaxation (Stage I diastolic dysfunction). These segments of the LV are hypokinetic inferior base segment. Mild mitral leaflet calcification. Mild mitral annular calcification. Trace mitral regurgitation. No significant aortic stenosis or insufficiency. Aortic cusps appear mildly calcified. Normal appearance of the tricuspid valve. Estimated peak PA systolic pressure 42 mmHg. There is mild tricuspid regurgitation. Electronically Signed By: Geovanny Myles 2018-05-03 10:15:35 PST
[2018-05-03] MEDS: ATORVASTATIN 80 MG TAB PO SCH (20:51)
[2018-05-04] VITALS (23 sets, daily range): BP systolic 112–154; BP diastolic 70–142; PULSE 70–90; RESP 11–25
[2018-05-04] MEDS ORDERED: LIDOCAINE 1% (MDV) 20 ML INJ ONE (06:43)
[2018-05-04] MEDS ORDERED: NITROGLYCERIN (IC) 100 MCG/ML INJ ONE (06:43)
[2018-05-04] MEDS ORDERED: MIDAZOLAM 1 MG/ML 2 ML INJ ONE (06:43)
[2018-05-04] MEDS ORDERED: IODIXANOL LOCM 100 ML BTL ONE (06:43)
[2018-05-04] MEDS ORDERED: HEPARIN 1000 UNITS/ML 10 ML INJ ONE ×2 (06:43→07:44)
[2018-05-04] MEDS ORDERED: VERAPAMIL 5 MG INJ ONE ×3 (06:45→07:03)
[2018-05-04] MEDS ORDERED: FENTAnyl 50 MCG/ML VIAL ONE (06:45)
--- NOTE | 2018-05-04 07:27 | CONS ---
Consult Date/Type/Reason Admit Date/Time May 02, 2018 at 19:11 Initial Consult Date 05/02/18 Type of Consultation: interventional card Requesting Provider: DONNA HEATH MD Date/Time of Note DATE: 05/04/18 TIME: 07:25 Subjective Interventional cardiology follow-up progress note/critical care note Subjective: Case discussed with the staff. family has obtained the effient D/W PHYSICIANS Patient with no chest pain or pressure now. Has minimal groin discomfort. No bleeding is reported. Patient has been able to walk this morning with no chest pain or pressure. He denies any PND orthopnea to me. Telemetry was reviewed patient has remained in sinus rhythm Objective: General: Obese gentleman in no acute distress HEENT: NC/AT. pupils are equal. round. NECK: NO JVD. no stridor. CV: RRR. systolic murmur; no gallop or rubs. PULM: no wheezing or rhonchi. GI: SOFT, NT, ND, no rebound or guarding Extremity: trace B/L LE edema. no clubbing. neuro: awake and alert, OX3. Psych: calm and pleasant rectal: deferred : normal Vascular: Right femoral no bleeding no hematoma noted. No bruit. EKG postprocedure shows: Normal sinus rhythm. T wave inversion in inferolateral leads. Echocardiogram done 05/03/2018 was personally reviewed which shows: Normal left ventricular cavity size. Mild concentric left ventricular hypertrophy. Ejection fraction is visually estimated at 60 %. Tissue Doppler/Mitral Doppler indices are consistent with impaired relaxation (Stage I diastolic dysfunction). These segments of the LV are hypokinetic inferior base segment. Mild mitral leaflet calcification. Mild mitral annular calcification. Trace mitral regurgitation. No significant aortic stenosis or insufficiency. Aortic cusps appear mildly calcified. Normal appearance of the tricuspid valve. Estimated peak PA systolic pressure 42 mmHg. There is mild tricuspid regurgitation. Objective Vitals Vital Signs Date Temp Pulse Resp B/P (MAP) Pulse Ox O2 O2 Flow FiO2 Time Delivery Rate 05/04/18 90 131/87 95 Room Air 05:00 (102) 05/04/18 17 04:00 05/04/18 98.3 00:00 05/03/18 2.0 20:00 Intake and Output 05/03/18 05/03/18 05/04/18 1414:59 22:59 06:59 IntakeIntake Total 150 ml 100 ml OutputOutput Total 0 ml 0 ml 375 ml BalanceBalance 150 ml 100 ml -375 ml Results/Medications Result Diagram: 05/04/1843405/04/18435 Results 24 hrs Laboratory Tests Test 05/04/18 04:35 05/04/18 04:36 White Blood Count 9.3 Red Blood Count 4.48 L Hemoglobin 13.8 L Hematocrit 40.8 L Mean Corpuscular Volume 91.1 Mean Corpuscular Hemoglobin 30.8 Mean Corpuscular Hemoglobin Concent 33.8 Red Cell Distribution Width 12.3 Platelet Count 198 Mean Platelet Volume 10.4 Immature Granulocytes % 0.500 H Neutrophils % 62.8 Lymphocytes % 21.9 Monocytes % 11.3 H Eosinophils % 3.1 Basophils % 0.4 Nucleated Red Blood Cells % 0.0 Immature Granulocytes # 0.050 H Neutrophils # 5.9 Lymphocytes # 2.0 Monocytes # 1.1 H Eosinophils # 0.3 Basophils # 0.0 Nucleated Red Blood Cells # 0.0 Prothrombin Time 13.3 Prothrombin Time Ratio 1.0 INR International Normalized Ratio 1.00 Sodium Level 141 Potassium Level 4.2 Chloride Level 106 Carbon Dioxide Level 27 Anion Gap 8 Blood Urea Nitrogen 12 Creatinine 1.08 Est Glomerular Filtrat Rate mL/min > 60 Glucose Level 124 Calcium Level 9.3 Magnesium Level 2.1 Total Bilirubin 0.4 Direct Bilirubin 0.00 Indirect Bilirubin 0.4 Aspartate Amino Transf (AST/SGOT) 116 #H Alanine Aminotransferase (ALT/SGPT) 50 Alkaline Phosphatase 73 Creatine Kinase 647 #H Creatine Kinase Index 2.9 Creatinine Kinase MB (Mass) 18.80 H Troponin I 23.500 *H Total Protein 6.9 Albumin 3.7 Globulin 3.20 Albumin/Globulin Ratio 1.15 Medications Current Medications Miscellaneous Information (* Miscellaneous Pharmacy Order) Hold all Metformin ... ONCE XX ; Start 05/02/18 at 19:30; Stop 05/04/18 at 19:29 Aspirin (Halfprin) 81 mg DAILY PO Last administered on 05/03/18at 08:33; Admin Dose 81 MG; Start 05/03/18 at 09:00 Prasugrel (Effient) 10 mg DAILY PO Last administered on 05/03/18at 08:33; Admin Dose 10 MG; Start 05/03/18 at 09:00 Acetaminophen (Tylenol Tab) 650 mg Q4H PRN PO PAIN; Start 05/02/18 at 19:30 Oxycodone/ Acetaminophen (Percocet (5/ 325)) 1 tab Q4H PRN PO PAIN; Start 05/02/18 at 19:30 Oxycodone/ Acetaminophen (Percocet (5/ 325)) 2 tab Q4H PRN PO PAIN; Start 05/02/18 at 19:30 Morphine Sulfate (morphine) 1 mg Q1H PRN IV PAIN; Start 05/02/18 at 19:30 Docusate Sodium (Colace) 100 mg BID PO Last administered on 05/03/18at 20:50; Admin Dose 100 MG; Start 05/02/18 at 21:00 Famotidine (Pepcid) 20 mg Q12 PO Last administered on 05/03/18at 20:51; Admin Dose 20 MG; Start 05/02/18 at 21:00 Atorvastatin Calcium (Lipitor) 80 mg DAILY@21 PO Last administered on 05/03/18at 20:51; Admin Dose 80 MG; Start 05/02/18 at 21:00 Clonidine (Catapres) 0.1 mg Q4H PRN NGT SBP > 170; Start 05/02/18 at 20:30 Carvedilol (Coreg) 12.5 mg BID PO Last administered on 05/03/18at 20:51; Admin Dose 12.5 MG; Start 05/03/18 at 09:00 Assessment/Plan Hospital Course (Demo Recall) 1. Acute inferior ST elevation myocardial infarction 2. Status post emergent PCI of the right coronary artery 3. Multivessel coronary artery disease including significant ramus intermediate disease 4. Hypertension 5. Rule out dyslipidemia 6. Atrial fibrillation rapid ventricular response: Currently has converted back to sinus rhythm 7. Obesity and likely obstructive sleep apnea 8. Smoker 8. DM? Recommendations: CONT Aspirin and Effient cont coreg 12.5 bid Patient has been strongly advised to stop smoking Off the Angiomax drip high dose statin PCI RI today Importance of compliance with the medication especially aspirin and Effient d iscussed with the patient and multiple family was at the bedside. Prescription has been given to the family to filling the prescription today. Plan for staged PCI of the ramus intermediate tomorrow morning if patient stays compliant with the medication the family is able to filling the prescriptions. Risks benefits alternative procedure discussed with the patient and family including daughter at the bedside in detail. Risks including but not limited to risk of infection vascular complication bleeding complication [place] stroke arrhythmia renal failure etc. discussed with them. Consent has been obtained. ok to transfer to tele in afternoon Thank you for his referral will continue following with you. GEOVANNY SANDS MD [facility] GEOVANNY SANDS MD May 04, 2018 07:27
[2018-05-04] MEDS ORDERED: IOHEXOL 350MG/ML 50 ML BTL ONE (07:53)
[2018-05-04] MEDS ORDERED: SOD CHLORIDE 0.9% 1,000 ML IV SCH (08:20)
--- NOTE | 2018-05-04 08:20 | OPR ---
Date/Time of Note Date/Time of Note DATE: 05/04/18 TIME: 08:14 Operative Report Procedure Date: May 04, 2018 Preoperative Diagnosis CAD . [place] Postoperative Diagnosis same Operation/Procedure Performed PCI RI Surgeon see signature line Manufacturing Industrial Engineer bentley Anesthesia Type: moderate sedation Estimated Blood Loss: minimal Transfusion none Specimen NONE Grafts/Implants none Complications none Procedure Description Scow Derrick Operator: Geovanny Myles MD Indication: 57-year-old gentleman with history of coronary artery disease status post STEMI and PCI of right coronary artery he was also found to have significant ramus intermediate disease. He was scheduled to come in for staged PCI of his ramus intermediate evaluation of right coronary artery Procure performed: #1 selective right and left coronary angiogram using left radial approach. #2 ultrasound guided placement of radial arterial sheath placement 3. Successful PTCA and stenting of ramus intermediate using a 2.5 x 12 mm Synergy drug-eluting stent 4. Moderate sedation for more than 45 minutes Findings: 1. Left main: is large and long with 30% mid to distal stenosis. 2. LAD: Moderate size and wraps around the apex. It has 40 % stenosis at proximal LAD, and 60 % stenosis at mid LAD the site of diagonal. Second diagonal is moderate size vessel with about 60-70% ostial stenosis.. 3. Left circumflex artery: is nondominant and small and gives out to one obtuse marginal. It has diffuse mid to distal stenosis 4. Ramus intermediate is a large vessel with about 90% mid stenosis at the site of a band ----> 0% PCI 5. RCA: is large and dominant. Previous stents are widely patent Procedure in detail: Written informed consent with obtained after risks benefits and alternatives discussed with the patient in detail. risks including but not limited to risk of infection vascular complications, bleeding complications, [place] stroke arrhythmia renal failure at even were discussed with the patient in detail. Patient was brought into the cardiac crown and bridge dental lab technician and placed in supine position. Radial area was prepped and draped in regular sterile fashion and then he was in anesthetized using 1% lidocaine. Under marketing assistant manager of ultrasound, radial artery was cannulated and using modified seldinger technique a 6 American sheath was placed in the radial artery. JR4 catheter was advanced and engaged into the right coronary artery and angiographic view was obtained. At this time we decided to perform PCI of the ramus intermediate artery. A Voda 3 guiding head was advanced to engage the left main coronary artery. Angiographic view was obtained. PT wire was used and advanced across the lesion and placed distal to the lesion. I used a 2.5 x 8 mm balloon which was placed a cross the lesion and predilated the vessel. Then I used a 2.5 x 12 mm Synergy drug-eluting stent which was placed across the lesion and deployed at 16 Jarek. Final angiographic view was obtained which showed BRIGETTE-3 flow no evidence of dissection and no significant residual stenosis at the site of the stent. Patient tolerated the procedure well with no complication. Patient is to be transferred to ICU in stable condition. contrast used: 80 cc Visipaque Conclusions: Successful PTCA stenting of the ramus intermediate artery from 90% stenosis to no significant residual stenosis using a 2.5 x 12 mm Synergy drug- eluting stent. Recommendations: Aggressive medical therapy. aspirin indefinitely dual antiplatlet therapy with aspirin and Effient GEOVANNY MYLES MD [facility] GEOVANNY MYLES MD May 04, 2018 08:20
[2018-05-04] MEDS: PRASUGREL HYDROCHLORIDE 10 MG TABLET PO SCH (08:42)
[2018-05-04] MEDS: FAMOTIDINE 20 MG TAB PO SCH ×2 (08:42→21:13)
[2018-05-04] MEDS: ASPIRIN (EC) 81 MG TAB PO SCH (08:42)
[2018-05-04] MEDS: DOCUSATE SODIUM 100 MG CAP PO SCH ×2 (08:43→21:12)
--- NOTE | 2018-05-04 09:36 | PN ---
Date/Time of Note Date/Time of Note DATE: 05/04/18 TIME: 09:34 Assessment/Plan VTE Prophylaxis Risk score (from Ns)>0 risk: 7 SCD applied (from Ns): Yes Pharmacological prophylaxis: other Lines/Catheters IV Catheter Type [facility]from [facility] Saline Lock Urinary Cath still in place: No Assessment/Plan Hospital Course S: Patient had second cardiac stent placement early this morning, now back in the intensive care unit, otherwise no acute events overnight. O: VS - see below PE: General: Obese gentleman, lying in bed, no acute distress HEENT: NC/AT. pupils are equal. round. NECK: Supple CV: RRR. systolic murmur; no gallop or rubs. PULM: no wheezing or rhonchi. GI: SOFT, NT, ND, no rebound or guarding Extremity: trace B/L LE edema. no clubbing. neuro: No focal deficits Vascular: Right femoral no bleeding no hematoma noted. No bruit. Assessment/Plan: 57-year-old male who presents with: 1. STEMI: Status post thrombectomy and stenting of the RCA 2 days ago, and now status post PCI to the RI this morning -Continue current medications per cardiology -Follow-up further cardiology recommendations 2. Presumed GUSTAVO -resolved now after given IV fluids -Monitor for now 3. Left elbow swelling, likely secondary to gout -Monitor, family to bring medication that he takes at home for gout. 4. Hypertension: Diastolic pressure still high -Monitor, adjust antihypertensives as needed 5. Leukocytosis: Likely reactive -Monitor for now Critical care time spent on patient care today equals 40 minutes. Result Diagram: 05/04/18 0435 05/04/18 0436 Results 24hrs Laboratory Tests Test 05/04/18 04:35 05/04/18 04:36 White Blood Count 9.3 Red Blood Count 4.48 L Hemoglobin 13.8 L Hematocrit 40.8 L Mean Corpuscular Volume 91.1 Mean Corpuscular Hemoglobin 30.8 Mean Corpuscular Hemoglobin Concent 33.8 Red Cell Distribution Width 12.3 Platelet Count 198 Mean Platelet Volume 10.4 Immature Granulocytes % 0.500 H Neutrophils % 62.8 Lymphocytes % 21.9 Monocytes % 11.3 H Eosinophils % 3.1 Basophils % 0.4 Nucleated Red Blood Cells % 0.0 Immature Granulocytes # 0.050 H Neutrophils # 5.9 Lymphocytes # 2.0 Monocytes # 1.1 H Eosinophils # 0.3 Basophils # 0.0 Nucleated Red Blood Cells # 0.0 Prothrombin Time 13.3 Prothrombin Time Ratio 1.0 INR International Normalized Ratio 1.00 Sodium Level 141 Potassium Level 4.2 Chloride Level 106 Carbon Dioxide Level 27 Anion Gap 8 Blood Urea Nitrogen 12 Creatinine 1.08 Est Glomerular Filtrat Rate mL/min > 60 Glucose Level 124 Calcium Level 9.3 Magnesium Level 2.1 Total Bilirubin 0.4 Direct Bilirubin 0.00 Indirect Bilirubin 0.4 Aspartate Amino Transf (AST/SGOT) 116 #H Alanine Aminotransferase (ALT/SGPT) 50 Alkaline Phosphatase 73 Creatine Kinase 647 #H Creatine Kinase Index 2.9 Creatinine Kinase MB (Mass) 18.80 H Troponin I 23.500 *H Total Protein 6.9 Albumin 3.7 Globulin 3.20 Albumin/Globulin Ratio 1.15 Exam/Review of Systems Exam Vitals Vital Signs Date Temp Pulse Resp B/P (MAP) Pulse Ox O2 O2 Flow FiO2 Time Delivery Rate 05/04/18 98.1 15 129/89 99 Nasal 2.0 08:36 (102) Cannula 05/04/18 90 05:00 Intake and Output 05/03/18 05/03/18 05/04/18 1515:00 23:00 07:00 IntakeIntake Total 150 ml 100 ml OutputOutput Total 0 ml 0 ml 375 ml BalanceBalance 150 ml 100 ml -375 ml Results Results 24hrs Laboratory Tests Test 05/04/18 04:35 05/04/18 04:36 White Blood Count 9.3 Red Blood Count 4.48 L Hemoglobin 13.8 L Hematocrit 40.8 L Mean Corpuscular Volume 91.1 Mean Corpuscular Hemoglobin 30.8 Mean Corpuscular Hemoglobin Concent 33.8 Red Cell Distribution Width 12.3 Platelet Count 198 Mean Platelet Volume 10.4 Immature Granulocytes % 0.500 H Neutrophils % 62.8 Lymphocytes % 21.9 Monocytes % 11.3 H Eosinophils % 3.1 Basophils % 0.4 Nucleated Red Blood Cells % 0.0 Immature Granulocytes # 0.050 H Neutrophils # 5.9 Lymphocytes # 2.0 Monocytes # 1.1 H Eosinophils # 0.3 Basophils # 0.0 Nucleated Red Blood Cells # 0.0 Prothrombin Time 13.3 Prothrombin Time Ratio 1.0 INR International Normalized Ratio 1.00 Sodium Level 141 Potassium Level 4.2 Chloride Level 106 Carbon Dioxide Level 27 Anion Gap 8 Blood Urea Nitrogen 12 Creatinine 1.08 Est Glomerular Filtrat Rate mL/min > 60 Glucose Level 124 Calcium Level 9.3 Magnesium Level 2.1 Total Bilirubin 0.4 Direct Bilirubin 0.00 Indirect Bilirubin 0.4 Aspartate Amino Transf (AST/SGOT) 116 #H Alanine Aminotransferase (ALT/SGPT) 50 Alkaline Phosphatase 73 Creatine Kinase 647 #H Creatine Kinase Index 2.9 Creatinine Kinase MB (Mass) 18.80 H Troponin I 23.500 *H Total Protein 6.9 Albumin 3.7 Globulin 3.20 Albumin/Globulin Ratio 1.15 Medications Medication Current Medications Miscellaneous Information (* Miscellaneous Pharmacy Order) Hold all Metformin ... ONCE XX ; Start 05/02/18 at 19:30; Stop 05/04/18 at 19:29 Aspirin (Halfprin) 81 mg DAILY PO Last administered on 05/04/18at 08:42; Admin Dose 81 MG; Start 05/03/18 at 09:00 Prasugrel (Effient) 10 mg DAILY PO Last administered on 05/04/18at 08:42; Admin Dose 10 MG; Start 05/03/18 at 09:00 Acetaminophen (Tylenol Tab) 650 mg Q4H PRN PO PAIN; Start 05/02/18 at 19:30 Oxycodone/ Acetaminophen (Percocet (5/ 325)) 1 tab Q4H PRN PO PAIN; Start 05/02/18 at 19:30 Oxycodone/ Acetaminophen (Percocet (5/ 325)) 2 tab Q4H PRN PO PAIN; Start 05/02/18 at 19:30 Morphine Sulfate (morphine) 1 mg Q1H PRN IV PAIN; Start 05/02/18 at 19:30 Docusate Sodium (Colace) 100 mg BID PO Last administered on 05/04/18at 08:43; Admin Dose 100 MG; Start 05/02/18 at 21:00 Famotidine (Pepcid) 20 mg Q12 PO Last administered on 05/04/18at 08:42; Admin Dose 20 MG; Start 05/02/18 at 21:00 Atorvastatin Calcium (Lipitor) 80 mg DAILY@21 PO Last administered on 05/03/18at 20:51; Admin Dose 80 MG; Start 05/02/18 at 21:00 Clonidine (Catapres) 0.1 mg Q4H PRN NGT SBP > 170; Start 05/02/18 at 20:30 Carvedilol (Coreg) 12.5 mg BID PO Last administered on 05/04/18at 08:42; Admin Dose 12.5 MG; Start 05/03/18 at 09:00 Sodium Chloride 1,000 ml @ 75 mls/hr [id number] IV Last administered on 05/04/18at 08:44; Admin Dose 75 MLS/HR; Start 05/04/18 at 08:20; Stop 05/04/18 at 21:39 GOYO JACQUES May 04, 2018 09:36
[2018-05-04] MEDS: ATORVASTATIN 80 MG TAB PO SCH (21:12)
[2018-05-05] VITALS (8 sets, daily range): BP systolic 126–139; BP diastolic 79–87; PULSE 67–85; RESP 18–19
--- NOTE | 2018-05-05 07:54 | CONS ---
Consult Date/Type/Reason Admit Date/Time May 02, 2018 at 19:11 Initial Consult Date 05/02/18 Type of Consultation: interventional card Requesting Provider: DONNA HEATH MD Date/Time of Note DATE: 05/05/18 TIME: 07:46 Subjective Interventional cardiology follow-up progress note/critical care note Subjective: Case discussed with the staff. family has obtained the effient Patient with no chest pain or pressure now. Has NO groin discomfort. No bleeding is reported. NO hand pain or numbness Patient has been able to walk this morning with no chest pain or pressure. He denies any PND orthopnea to me. Telemetry was reviewed patient has remained in sinus rhythm pt feels better and wants to go home Objective: General: Obese gentleman in no acute distress HEENT: NC/AT. pupils are equal. round. NECK: NO JVD. no stridor. CV: RRR. systolic murmur; no gallop or rubs. PULM: no wheezing or rhonchi. GI: SOFT, NT, ND, no rebound or guarding Extremity: trace B/L LE edema. no clubbing. neuro: awake and alert, OX3. Psych: calm and pleasant rectal: deferred : normal Vascular: Right femoral no bleeding no hematoma noted. No bruit. Left radial pulses intact EKG postprocedure shows: Normal sinus rhythm. T wave inversion in inferolateral leads. Echocardiogram done 05/03/2018 was personally reviewed which shows: Normal left ventricular cavity size. Mild concentric left ventricular hypertrophy. Ejection fraction is visually estimated at 60 %. Tissue Doppler/Mitral Doppler indices are consistent with impaired relaxation (Stage I diastolic dysfunction). These segments of the LV are hypokinetic inferior base segment. Mild mitral leaflet calcification. Mild mitral annular calcification. Trace mitral regurgitation. No significant aortic stenosis or insufficiency. Aortic cusps appear mildly calcified. Normal appearance of the tricuspid valve. Estimated peak PA systolic pressure 42 mmHg. There is mild tricuspid regurgitation. Objective Vitals Vital Signs Date Temp Pulse Resp B/P (MAP) Pulse Ox O2 O2 Flow FiO2 Time Delivery Rate 05/05/18 98.6 67 19 139/81 94 07:20 (100) 05/05/18 Room Air 04:03 05/04/18 2.0 21:32 Intake and Output 05/04/18 05/04/18 05/05/18 1515:00 23:00 07:00 IntakeIntake Total 895 ml 300 ml 480 ml OutputOutput Total 600 ml 0 ml BalanceBalance 295 ml 300 ml 480 ml Results/Medications Result Diagram: 05/05/18 0534 05/05/18 0534 Results 24 hrs Laboratory Tests Test 05/05/18 05:34 White Blood Count 8.9 Red Blood Count 4.48 L Hemoglobin 13.9 L Hematocrit 40.8 L Mean Corpuscular Volume 91.1 Mean Corpuscular Hemoglobin 31.0 Mean Corpuscular Hemoglobin Concent 34.1 Red Cell Distribution Width 12.2 Platelet Count 215 Mean Platelet Volume 10.7 H Immature Granulocytes % 0.500 H Neutrophils % 62.8 Lymphocytes % 20.9 Monocytes % 10.6 Eosinophils % 4.6 Basophils % 0.6 Nucleated Red Blood Cells % 0.0 Immature Granulocytes # 0.040 H Neutrophils # 5.6 Lymphocytes # 1.9 Monocytes # 0.9 Eosinophils # 0.4 Basophils # 0.1 Nucleated Red Blood Cells # 0.0 Sodium Level 142 Potassium Level 3.9 Chloride Level 107 Carbon Dioxide Level 26 Anion Gap 9 Blood Urea Nitrogen 17 Creatinine 1.11 Est Glomerular Filtrat Rate mL/min > 60 Glucose Level 111 Calcium Level 9.3 Total Bilirubin 0.4 Direct Bilirubin 0.00 Indirect Bilirubin 0.4 Aspartate Amino Transf (AST/SGOT) 62 H Alanine Aminotransferase (ALT/SGPT) 36 Alkaline Phosphatase 78 Total Protein 6.7 Albumin 3.6 Globulin 3.10 Albumin/Globulin Ratio 1.16 Medications Current Medications Aspirin (Halfprin) 81 mg DAILY PO Last administered on 05/04/18at 08:42; Admin Dose 81 MG; Start 05/03/18 at 09:00 Prasugrel (Effient) 10 mg DAILY PO Last administered on 05/04/18at 08:42; Admin Dose 10 MG; Start 05/03/18 at 09:00 Acetaminophen (Tylenol Tab) 650 mg Q4H PRN PO PAIN; Start 05/02/18 at 19:30 Oxycodone/ Acetaminophen (Percocet (5/ 325)) 1 tab Q4H PRN PO PAIN; Start 05/02/18 at 19:30 Oxycodone/ Acetaminophen (Percocet (5/ 325)) 2 tab Q4H PRN PO PAIN; Start 05/02/18 at 19:30 Morphine Sulfate (morphine) 1 mg Q1H PRN IV PAIN; Start 05/02/18 at 19:30 Docusate Sodium (Colace) 100 mg BID PO Last administered on 05/04/18at 21:12; Admin Dose 100 MG; Start 05/02/18 at 21:00 Famotidine (Pepcid) 20 mg Q12 PO Last administered on 05/04/18at 21:13; Admin Dose 20 MG; Start 05/02/18 at 21:00 Atorvastatin Calcium (Lipitor) 80 mg DAILY@21 PO Last administered on 05/04/18 21:12; Admin Dose 80 MG; Start 05/02/18 at 21:00 Clonidine (Catapres) 0.1 mg Q4H PRN NGT SBP > 170; Start 05/02/18 at 20:30 Carvedilol (Coreg) 12.5 mg BID PO Last administered on 05/04/18 21:13; Admin Dose 12.5 MG; Start 05/03/18 at 09:00 Assessment/Plan Hospital Course (Demo Recall) 1. Acute inferior ST elevation myocardial infarction 2. Status post emergent PCI of the right coronary artery 3. Multivessel coronary artery disease including significant ramus intermediate disease 4. Hypertension 5. Rule out dyslipidemia 6. Atrial fibrillation rapid ventricular response: Currently has converted back to sinus rhythm 7. Obesity and likely obstructive sleep apnea 8. Smoker 8. Pre DM Recommendations: CONT Aspirin and Effient cont coreg 12.5 bid Patient has been strongly advised to stop smoking high dose statin ok for dc on current meds from cardiac stand point Patient has been given my information to contact my office to schedule a follow- up appointment in about 1-2 weeks Thank you for his referral will continue following with you. GEOVANNY SANDS MD [facility] GEOVANNY SANDS MD May 05, 2018 07:54
[2018-05-05] MEDS: ASPIRIN (EC) 81 MG TAB PO SCH (08:36)
[2018-05-05] MEDS: PRASUGREL HYDROCHLORIDE 10 MG TABLET PO SCH (08:36)
[2018-05-05] MEDS: DOCUSATE SODIUM 100 MG CAP PO SCH (08:36)
[2018-05-05] MEDS: FAMOTIDINE 20 MG TAB PO SCH (08:36)
--- NOTE | 2018-05-05 11:48 | PDOCDIS ---
Discharge Instructions CONDITION [id number] Patient Condition: [id number] Stable HOME CARE INSTRUCTIONS: [id number] Diet Instructions: [id number] Low Fat /Cholesterol ACTIVITY: [id number] Activity Restrictions: [id number] Slowly Increase Activity Rest between Activity Avoid heavy lifting FOLLOW UP/APPOINTMENTS Follow-up Plan Please take your medications as prescribed, see your doctor in the clinic in the next 1 week. GOYO JACQUES May 05, 2018 11:48
[2018-05-05] MEDS ORDERED: PRAS10TA6 PO (11:50)
[2018-05-05] MEDS ORDERED: ASPI-1044 PO (11:50)
[2018-05-05] MEDS ORDERED: CARV12.579 PO (11:50)
[2018-05-05] MEDS ORDERED: FAMO20TA18 PO (11:50)
[2018-05-05] MEDS ORDERED: ATOR-2 PO (11:50)
--- NOTE | 2018-05-05 11:55 | DS ---
Date/Time of Note Date/Time of Note DATE: 05/05/18 TIME: 11:51 Discharge Summary Admission/Discharge Info Admit Date/Time May 02, 2018 at 19:11 Discharge Date/Time Discharge Diagnosis 1. STEMI: Status post thrombectomy and stenting of the RCA, and status post PCI to the RI 2. Presumed GUSTAVO -resolved now after given IV fluids 3. Left elbow swelling, likely secondary to gout 4. Hypertension 5. Leukocytosis: Likely reactive-resolved now 6. Smoking history: Counseled on cessation 7. High triglycerides Patient Condition: Stable Procedures A. 2D echo: Conclusions: Normal left ventricular cavity size. Mild concentric left ventricular hypertrophy. Ejection fraction is visually estimated at 60 %. Tissue Doppler/Mitral Doppler indices are consistent with impaired relaxation (Stage I diastolic dysfunction). These segments of the LV are hypokinetic inferior base segment. Mild mitral leaflet calcification. Mild mitral annular calcification. Trace mitral regurgitation. No significant aortic stenosis or insufficiency. Aortic cusps appear mildly calcified. Normal appearance of the tricuspid valve. Estimated peak PA systolic pressure 42 mmHg. There is mild tricuspid regurgitation. B. Date/Time of Note Date/Time of Note DATE: 05/02/18 TIME: 19:11 Operative Report Procedure Date: May 02, 2018 Preoperative Diagnosis INFERIOR STEMI Postoperative Diagnosis INFERIOR STEMI Operation/Procedure Performed PCI RCA C. Date/Time of Note Date/Time of Note DATE: 05/04/18 TIME: 08:14 Operative Report Procedure Date: May 04, 2018 Preoperative Diagnosis CAD . [place] Postoperative Diagnosis same Operation/Procedure Performed PCI RI Hx of Present Illness 57-year-old male with a history of hypertension and gout who presented to ER complaining of chest pain. He was diagnosed with STEMI. Patient was taken to the Forming Process Worker emergently and underwent cardiac cath. He is status post thrombectomy of the RCA and successful PTCA and stenting of proximal mid and distal right coronary artery. Currently admitted to ICU in stable condition. Currently he is chest pain-free, denying shortness of breath and overall feels well and looks comfortable. He does have swelling on his right elbow, which he said started over a week ago. He said he takes gout medication for it. Swelling was twice the size of what it is now several days ago. It is only minimally swollen and there is no erythema. He also reported having had swelling on his left great toe. Hospital Course Patient was admitted, seen by cardiology team. He underwent cardiac stent placement x2 secondary to the ST elevation AR. This was performed under 2 separate left heart catheterization procedures. Patient tolerated the procedure well. He was placed on aspirin, high-dose statin, Effient medication. He was counseled on smoking cessation. Over the course of his hospital stay chest pain symptoms improved, he was able to ambulate, tolerated p.o. diet. Vital signs are stable on the day of discharge. After getting clearance from the internet sales consultant teams will be discharged home today improved condition. See below for full list of discharge medications. Home Meds Active Scripts Famotidine* (Famotidine*) 20 Mg Tablet, 20 MG PO DAILY, #30 TAB 2 Refills Prov:GRISELDAGOYO S. 05/05/18 Aspirin Delayed Release (Aspirin Delayed Release) 81 Mg Tablet.dr, 81 MG PO DAILY, #30 8 Refills Prov:GEORGIEGOYO S. 05/05/18 Atorvastatin* (Atorvastatin*) 80 Mg Tablet, 80 MG PO DAILY@21, #30 TAB 4 Refills Prov:GEORGIEGOYO S. 05/05/18 Carvedilol* (Carvedilol*) 12.5 Mg Tablet, 12.5 MG PO BID, #60 TAB 4 Refills Prov:GEORGIEGOYO S. 05/05/18 Prasugrel Hydrochloride* (Effient*) 10 Mg Tablet, 10 MG PO DAILY, #30 TAB 8 Refills Prov:ADAIR JACQUESP S. 05/05/18 Follow-up Plan Please take your medications as prescribed, see your doctor in the clinic in the next 1 week. Primary Care Provider Not On Staff Doctor Time spent on discharge: > 30 minutes Pending Labs Laboratory Tests Test 05/05/18 05:34 White Blood Count 8.9 10^3/ul (4.8-10.8) Red Blood Count 4.48 10^6/ul (4.70-6.10) Hemoglobin 13.9 g/dl (14.0-18.0) Hematocrit 40.8 % (42.0-52.0) Mean Corpuscular Volume 91.1 fl (82.0-101.0) Mean Corpuscular Hemoglobin 31.0 pg (29.0-33.0) Mean Corpuscular Hemoglobin Concent 34.1 g/dl (32.0-37.0) Red Cell Distribution Width 12.2 % (11.5-14.5) Platelet Count 215 10^3/UL (140-415) Mean Platelet Volume 10.7 fl (7.4-10.4) Immature Granulocytes % 0.500 % (0.001-0.429) Neutrophils % 62.8 % (39.0-77.0) Lymphocytes % 20.9 % (15.0-51.0) Monocytes % 10.6 % (0.0-11.0) Eosinophils % 4.6 % (0.0-7.0) Basophils % 0.6 % (0.0-2.0) Nucleated Red Blood Cells % 0.0 /100WBC (0.0-0.0) Immature Granulocytes # 0.040 10^3/ul (0.0-0.031) Neutrophils # 5.6 10^3/ul (1.6-7.5) Lymphocytes # 1.9 10^3/ul (0.8-2.9) Monocytes # 0.9 10^3/ul (0.3-0.9) Eosinophils # 0.4 10^3/ul (0.0-0.5) Basophils # 0.1 10^3/ul (0.0-0.1) Nucleated Red Blood Cells # 0.0 10^3/ul (0.0-0.0) Sodium Level 142 mmol/L (135-144) Potassium Level 3.9 mmol/L (3.5-5.1) Chloride Level 107 mmol/L (97-110) Carbon Dioxide Level 26 mmol/L (21-31) Anion Gap 9 (5-13) Blood Urea Nitrogen 17 mg/dl (7-20) Creatinine 1.11 mg/dl (0.61-1.24) Est Glomerular Filtrat Rate mL/min > 60 mL/min (>60) Glucose Level 111 mg/dl (70-220) Calcium Level 9.3 mg/dl (8.4-10.2) Total Bilirubin 0.4 mg/dl (0.2-1.3) Direct Bilirubin 0.00 mg/dl (0.00-0.20) Indirect Bilirubin 0.4 mg/dl (0-1.1) Aspartate Amino Transf (AST/SGOT) 62 IU/L (15-46) Alanine Aminotransferase (ALT/SGPT) 36 IU/L (13-69) Alkaline Phosphatase 78 IU/L (42-121) Total Protein 6.7 g/dl (6.1-8.1) Albumin 3.6 g/dl (3.3-4.9) Globulin 3.10 g/dl (1.3-3.2) Albumin/Globulin Ratio 1.16 GOYO JACQUES May 05, 2018 11:55
--- NOTE | 2018-05-06 13:35 | RADRPT ---
Vent Rate: 80 bpm RR Interval: 0 msec ME Interval: 132 msec QRS Duration: 80 msec QT Interval: 364 msec QTC Interval: 419 msec P-R-T [place]: 52 - 38 - -69 degrees Sinus rhythm with premature supraventricular complexes T wave abnormality, consider inferior ischemia Abnormal ECG Electronically Signed By: Clayton Ochoa
--- NOTE | 2018-05-06 13:36 | RADRPT ---
Vent Rate: 76 bpm RR Interval: 0 msec MT Interval: 132 msec QRS Duration: 74 msec QT Interval: 376 msec QTC Interval: 423 msec P-R-T [place]: 49 - 9 - -61 degrees Normal sinus rhythm T wave abnormality, consider inferolateral ischemia Abnormal ECG Electronically Signed By: Clayton Ochoa
== END 2018-05-05 13:05 | disposition home or self-care (01) | DRG 246 ==
LOC: E/R 17:40 → CCL 19:10 → SDS 19:10 → ICU 19:11 → CCL 20:44 → ICU 20:44 → CCL 20:48 → 6WM 05-04 20:25
PROVIDERS: ADMIT Internal Medicine Interventional Cardiology; ATTEND Hospitalist
PROC: 4A023N7 Measurement of Cardiac Sampling and Pressure, Left Heart, Percutaneous Approach (ICD-10-PCS; 2018-05-02)
PROC: B211YZZ Fluoroscopy of Multiple Coronary Arteries using Other Contrast (ICD-10-PCS; 2018-05-02)
PROC: 027036Z Dilation of Coronary Artery, One Artery with Three Drug-eluting Intraluminal Devices, Percutaneous Approach (ICD-10-PCS; principal; 2018-05-02 18:00)
PROC: 02C03ZZ Extirpation of Matter from Coronary Artery, One Artery, Percutaneous Approach (ICD-10-PCS; 2018-05-02 18:00)
PROC: 027034Z Dilation of Coronary Artery, One Artery with Drug-eluting Intraluminal Device, Percutaneous Approach (ICD-10-PCS; 2018-05-04)
PROC: B211YZZ Fluoroscopy of Multiple Coronary Arteries using Other Contrast (ICD-10-PCS; 2018-05-04)
DX: I21.19 ST elevation (STEMI) myocardial infarction involving other coronary artery of inferior wall (principal); N17.9 Acute kidney failure, unspecified; I10 Essential (primary) hypertension; Z68.23 Body mass index [BMI] 23.0-23.9, adult; E66.9 Obesity, unspecified; I25.10 Atherosclerotic heart disease of native coronary artery without angina pectoris; I48.91 Unspecified atrial fibrillation; M10.9 Gout, unspecified; E78.1 Pure hyperglyceridemia; F17.200 Nicotine dependence, unspecified, uncomplicated
CPT/HCPCS: 71045; 80048; 80053; 80061; 82550; 82553; 83036; 83735; 83880; 84439; 84443; 84484; 85025; 85610; 85730; 87081; 92928; 92941; 93005; 93306; 93454; 93458; J0583; C1725; C1874; C1887; C1894; C9606; J0461; J1644; J2250; J3010; J7030; J7040; Q9967